=== PATIENT | male | born 1955 | race Caucasian/White ===

== ENCOUNTER 2016-08-08 17:41 | Emergency (ER) | payer BC ==
[~2016-08-08] VITALS: Ht 185.4 cm; Wt 82.0 kg
[2016-08-08 20:04] LABS: HEMATOCRIT 41.9 % (38.0-50.0); MCH 31.5 PG (29.0-34.0); MCHC 34.6 G/DL (30.0-36.0); MCV 91.1 FL (86-99); MEAN PLAT.VOLUME 9.2 uM^3 (9.0-12.4); PLATELET COUNT 193 K/uL (156-360); RBC DIS.WIDTH-CV 11.9 % (11.8-14.6); RBC DIS.WIDTH-SD 39.3 % (39-53); WHITE BLOOD COUNT 8.9 K/uL (4.1-10.2)
[2016-08-08 20:11] LABS: CHLORIDE 102 mEq/L (99-109); SODIUM 139 mEq/L (136-147)
[2016-08-08 20:13] LABS: GLUCOSE 104 mg/dL (70-99)
[2016-08-08 20:15] LABS: ANION GAP 10 MEQ/L (2-14)
[2016-08-08 20:17] LABS: GFR ESTIMATE (CALCULATED) > 59 mL/min/
[2016-08-08 20:18] LABS: UREA NITROGEN (BUN) 7 mg/dL (9-23)
[2016-08-08] MEDS ORDERED: PERCOCET 5/31 TABLET PO (20:26)
[2016-08-08] MEDS ORDERED: ZOFRAN4 MG PO (20:26)
[2016-08-08 20:57] VITALS: BP 106/65
== END 2016-08-08 21:04 | disposition home or self-care (01) ==
LOC: EME 17:41
PROVIDERS: Physician Assistant
DX: G89.18 Other acute postprocedural pain (principal); T45.516A Underdosing of anticoagulants, initial encounter; Z91.128 Patient's intentional underdosing of medication regimen for other reason; Z91.14 Patient's other noncompliance with medication regimen; Z96.652 Presence of left artificial knee joint
CPT/HCPCS: 80048; 83605; 85027; 93971; 99281; 99285